=== PATIENT | male | born 1940 | race Caucasian/White ===

== ENCOUNTER → 2018-06-19 | Outpatient (CLI) | payer MEDICARE | LOC: GMATM 16:44 | PROVIDERS: ATTEND Nurse Practitioner Family | DX: I10 Essential (primary) hypertension (principal) ==

== ENCOUNTER → 2018-11-08 | Outpatient (CLI) | payer MEDICARE ==
--- NOTE | 2018-11-08 16:56 | RAD ---
EXAM DESCRIPTION: Ankle, right 3 Views CLINICAL HISTORY: 78 years,Male,PAIN COMPARISON: None. TECHNIQUE: Three views of the right ankle. FINDINGS: Tiny osseous densities inferior to the fibula which could represent tiny avulsion fracture fragments of indeterminate age. There is a minimal plantar calcaneal spur. There is soft tissue swelling around the ankle. IMPRESSION: Small calcific fragments inferior to the fibula which could be from avulsion fractures of indeterminate age. Electronically signed by: Shelton Hooks MD 11/08/2018 4:55 PM [facility]
== END ==
LOC: RAD 16:24
PROVIDERS: ATTEND Nurse Practitioner Family
DX: M25.571 Pain in right ankle and joints of right foot (principal); M77.31 Calcaneal spur, right foot